=== PATIENT | female | born 1935 | race Caucasian/White ===

== ENCOUNTER 2021-09-23 19:54 | Inpatient (IN) | payer OTHER, MEDICARE ==
[~2021-09-23] VITALS: Ht 167.6 cm; Wt 60.8 kg
--- NOTE | ~2021-09-23 | D ---
[facility] [address] [place] [address] DISCHARGE SUMMARY Name: JOHNNIE GORDON Room #: 527B-B [facility] IN M.R.#: [id number] Admission: 09/24/21 Attend Phys: Sheldon Wood DO Discharge: 10/07/21 Date of : 39 Report #: [id number] THIS REPORT FOR: cc: FAM - Family physician unknown FAM - Family physician unknown Sheldon Wood DO ~ DATE OF SERVICE: 10/07/2021 INPATIENT PSYCHIATRIC DISCHARGE SUMMARY ATTENDING PSYCHIATRIST: Sheldon Wood DO WARRANTY ADMINISTRATOR: Natasha Motley MD DISCHARGE DIAGNOSES: Major neurocognitive disorder, likely due to Alzheimer's disease, at least mild degree without behavioral disturbance, major depressive disorder, unspecified. The patient is discharging initially to her daughter's ____ home, but will be placed at [facility] in assisted living with her in the end of this week. DISCHARGE DIET: For this patient is an 1800-calorie diabetic diet. ACTIVITY LEVEL: As tolerated. She does use a walker. The patient does require 24-hour assistance. DISCHARGE MEDICATIONS: Atorvastatin 10 mg oral daily for hyperlipidemia, melatonin 10 mg oral daily for hypertension and kidney protection, aspirin 81 mg oral daily for heart protection, metformin 1000 mg oral twice daily for diabetes mellitus, glimepiride 1 mg oral daily with breakfast. For hyperglycemia, omega 3 fatty acids 1000 mg oral daily. This was ____ medication. I did get a call for a prior authorization for which I declined as I do not normally give that and I was not the provider initiating on the medications. Additional medication, mirtazapine 15 mg oral at bedtime for sleep and appetite and depression. Vitamin B12 500 mcg oral daily for supplementation. Vitamin D3 5000 international units oral daily for supplementation. The patient was given Crisis suicide hotline information. LABORATORY DATA: Significant laboratories this admission. COVID-19 serology was negative on ____ , , and . Syphilis serology was nonreactive ____. A1c for hemoglobin was 7.5, suboptimal control. Triglycerides 149, cholesterol 106, LDL 75, HDL 52. B12 ____, vitamin D pretty low at 9.6, ____. TSH normal at 2.808. Urinalysis this admission showed trace blood. Had some other positives. Urine micro this admission showed no growth, however, on [address] done as part of our dementia workup on 09/24 showed no acute intracranial process. REASON FOR ADMISSION: An 86-year-old female admitted to [address] [address] DISCHARGE SUMMARY Name: JOHNNIE GORDON Room #: 527B-B [facility] IN ..#: [id number] Admission: 09/24/21 Attend Phys: Sheldon Wood, Discharge: 10/07/21 Date of : 37 Report #: [id number] after an intentional overdose, taking 40 of 15 mg mirtazapine. These were actually her 's. She states ____ she was trying to take her own life. We did get the patient from outside hospital ____ from On license of [facility]. HOSPITAL COURSE: The patient was admitted to Geriatric Psychiatry Unit. She had a depressed affect. I initially started on sertraline. She had some nausea and vomiting, switched her to mirtazapine for better gastrointestinal side effect profile. We did do ____ admission, the patient scored in the ____ I believe. Over the course of the admission, the patient's mood improved. We had several family meetings. The patient was living with her in ____. I felt that she would best be served in an assisted living. Also, the showing some signs of decline. The daughter, Bonnie, was very involved ____ process. There were some delays in getting placement arranged. At the day of discharge, the patient was not suicidal or homicidal. PHYSICAL EXAMINATION: VITAL SIGNS: Temperature 36.1, pulse 91, respirations 70, BP 130/56. BMI 21.6, weight 60.781 kilos. MUSCULOSKELETAL: Assisted gait with walker, slightly kyphotic. Normal station. MENTAL STATUS EXAMINATION: Well-developed, slightly ill-appearing female. Attention limited. Concentration limited. Speech normal in rate. Thought process: Linear and goal directed. Thought content, focused on discharge. Return to be with her . Denied SI, HI, auditory or visual type hallucinations. Memory not formally tested, known to be impaired. Insight and judgment fair. Fund of knowledge at least average. PROGNOSIS: For this patient is guarded given her age of 86, having a neurodegenerative disorder ____ placement. By: [id number] Sheldon Wood, DO /nt
[2021-09-24 01:00] VITALS: BP 163/86
--- NOTE | 2021-09-24 01:36 | NUR ---
PATIENT CAME BY WC FROM ED AFTER NEGATIVE RESULTS OF COVID PCR LAB TEST. SHE IS A/0X4. SHE STATES SHE LIVES IN A DETENTION COMMUNITY WITH HER WHO HAS SOME MEMORY ISSUES AND HER DAUGHTER HIRA ROCA [phone] OR CELL PHONE IS [phone] IS HER DPOA. SHE STATES SHE WAS FEELING OVERWHELMED AND THAT THINGS WERE CLOSING IN ON HER. HER DAUGHTER IS TAKING OVER ALL THE FINANCIAL BILLS AND OTHER FINANCES SINCE SHE WAS HAVING TROUBLE KEEPING UP WITH THEM. SHE DECIDED TO TAKE MIRTZAPINE 40 TABLETS. SHE STATES THIS MADE HER MORE UNSTEADY THAN USUAL ON HER FEET AND SHE HAD FALLEN AT SOME POINT. HER FOUND HER ON THE FLOOR BETWEEN HER BED AND BEDSIDE TABLE. PATIENT HAS MULTIPLE SCRAPES AND BRUISES OVER BILATERAL ARMS, A BRUISE ON RIGHT BREAST, BILATERAL SKINNED KNEES WITH ANGRY RED EDGES, AND LEFT SIDE OF BACK WITH 2 4" INCH ABRAISIONS/BRUISES FROM FALL. PATIENT CAN STAND WITH ASSISTANCE. HER BALANCE IS VERY UNSTEADY. SHE IS CALM AND COOPERATIVE AND HOPEFUL TO SEE IMPROVEMENT HERE. PATIENT HAS MED HISTORY OF DM2, HLD, OSTEOARTHRITIS (HIP,BACK). VSS FOLLOWS 163/86,P 91,R 18, T 97.1 AND 02 SAT ON RA 96%. BED IN LOW POSITON AND BED ALARM IS ON. HOSPITALIST NOTIFIED AND ORDERS RECEIVED FROM DR JOVEL. CONSENTS AWAITING DPOA OK. ROUTINE ROUNDS TO ASSESS SAFETY AND STATUS OF PATIENT.
[2021-09-24 07:51] VITALS: BP 159/81
[2021-09-24 08:03] LABS: CHOLESTEROL 156 mg/dL (<200); HDL CHOLESTEROL 52 mg/dL (>40); LDL CHOLESTEROL 75 mg/dL (<100); TRIGLYCERIDE 149 mg/dL (<150); VLDL 30 mg/dL (<40)
[2021-09-24 10:49] VITALS: BP 159/81
--- NOTE | 2021-09-24 14:55 | NUR ---
Nutrition: pt admitted with SI to [facility] unit. PMH: DM, HLD, osteoarthritis. No indication of weight loss or poor intake. Pt consumed 75% of her first meal on unit. On carb controlled diet. BG 169. On B12 supplement. BMI WNL. Follow for any needed interventions but place as low nutrition risk.
--- NOTE | 2021-09-24 17:40 | NUR ---
Taryn was alert and oriented x4 this shift, although forgetful. She expressed she felt overwelhmed due to not "knowing what I should be doing". Pt was provided education regarding the schedule on the unit and what to expect, to help to try and decrease pt's anxiety. She appreciated the education provided and stated "I might have to ask you again", reassurance given. Pt was calm, cooperative, pleasant, and appropriate. She presented as withdrawn and isolative to her room at times, but she did participate in afternoon groups. She was medicatoin and meal compliant, without difficulty. She expressed being hopeful to get better and expressed her daughter taking over as DPOA was a "relief" for her. She denied SI/HI/SUMMERS and remained safe while on the unit this shift. Pt stated she had a small BM this morning and felt slightly constipated; pt was provided education and she stated she would let this RN know if she needed a stool softner. Pt has not voiceed c/o constipation since. Pt is currently sitting comfortably in a chair in her room as she just finished eating dinner. Consent for treatment was received per pt's daughter, Monica this morning and was provided with the 4 digit security code, along with the direct line to the nurses station. Will continue to monitor.
[2021-09-24 19:50] VITALS: BP 141/56
[2021-09-24 20:12] VITALS: BP 141/56
--- NOTE | 2021-09-24 21:34 | H ---
[facility] [place] [address] HISTORY AND PHYSICAL Name: JOHNNIE GORDON Room #: 525A-A ADM IN M.R.#: [id number] Admission: 09/24/21 Attend Phys: Sheldon Wood DO Discharge: Date of : 37 Report #: [id number] THIS REPORT FOR: cc: FAM - Family physician unknown FAM - Family physician unknown Sheldon Wood DO ~ DATE OF SERVICE: 09/24/2021 INPATIENT GERIATRIC PSYCHIATRIC EVALUATION ATTENDING PSYCHIATRIST: Sheldon Wood DO SHANK STAPLER: Bebe Howell APRN; Domingo Patten MD; and his hospitalist team. SOURCES OF INFORMATION: Interview with the patient; brief collateral from daughter, Bonnie; records here at [facility] including the Emergency Room and hospitalist; records from [facility] where the patient initially presented for medical attention. CHIEF COMPLAINT: "I wanted it to be over." HISTORY OF PRESENT ILLNESS: This is an 86-year-old multiparous female residing with her in the [facility] area [place], [place]. The patient was transferred from Critical access hospital on [address] given concerns of intentional overdose suicide attempt. The patient did admit to taking her 's mirtazapine. She stated to me she wanted it to be over. The patient herself is 6 months younger than her . She states he has dementia she believes and is multiple myeloma survivor, and she functions as his caregiver. It does not sound like there is domestic strife and the abuse or violence ____, but it is sounding like she is unable to care for him further. When we dialed in the daughter, it sounds like they were going to be visiting Psychiatry, Psychology, other all kind of folks in the next month, but that had not been executed yet and they have not looked for placements for their mother and stepfather. She was admitted, it looks like on 09/20/2021 at [facility] and discharged there on the when she came over to us at [facility]. The patient has medical history, diabetes mellitus type 2, hyperlipidemia, hypertension, cataracts, osteoarthritis in the low back and hip. [facility] had a nice procedural kind of list. She has had a breast biopsy with negative pathology. She had a lipoma taken out of her shoulder, she has had a cholecystectomy. She had an extraction of cataract with implant in her right eye in 12/2015 and she had one in her left eye extracted in 01/2016. The patient reports she quit smoking in 1980. She denies alcohol. Denies illicit drug use. Our hospitalist FAT PRESSROOM WORKER was able to perform review of systems. REVIEW OF SYSTEMS: [facility] [address] [place] [address] HISTORY AND PHYSICAL Name: JOHNNIE GORDON Room #: 525A-A ADM IN M.R.#: [id number] Admission: 09/24/21 Attend Phys: Sheldon Wood, Discharge: Date of : 37 Report #: [id number] CONSTITUTIONAL: Denies. HEENT: Denies. RESPIRATORY: Denies. CARDIOVASCULAR: Denies. GASTROINTESTINAL: She has abdominal pain. She denied that to me this morning. GENITOURINARY: Denies. MUSCULOSKELETAL: Denies. SKIN: Denies. NEUROPSYCH: She actually pretty much denied it this morning. ENDOCRINE: Denied. HEMATOLOGIC AND LYMPHATIC: Denied. LABORATORY DATA: From her overdose presentation, did show glucose 285. Sodium was 137, potassium 4.0, chloride 99, bicarbonate 25, anion gap 13, calcium 9.2, total protein 6.4, albumin 4.4, alkaline phosphatase 70, ALT 22, AST 28, total bilirubin 0.5, BUN 18, creatinine 0.90. Troponin high sensitivity was 108, so slightly elevated. GFR female non- 59.7. CK was 64. Alcohol negative. Salicylate negative. The EKG done at [facility] showed a QT of 384 milliseconds, QTc 488 milliseconds, the PA interval [address] done there showed no acute intracranial abnormalities, mild cerebral atrophy and should double check here because I had asked her and her daughter, if she had a CT done and they said no, so we have repeated a CT here and when I reviewed the images, I agree it is a clean head CT, no strokes, mass or hydrocephalus I can tell, although the rate of her EKG was 97 in Critical access hospital. HOME MEDICATIONS: Known to be aspirin, coenzyme Q, enalapril, glimepiride, metformin, omega 3 fatty acids. ALLERGIES: IBUPROFEN. The primary care physician is Dr. Reyes from what the patient told me. Here at [facility] did a [facility] mental status examination and the patient scored a 15/30. Deficits were on working memory, verbal fluency, delayed memory, reverse digit span, executive functioning with clock drawing total of 15/30. PHYSICAL EXAMINATION: GENERAL: Uses a walker. Somewhat frail-appearing. BMI 21.5, weight 60.384 kilograms. MENTAL STATUS EXAMINATION: Well-developed, somewhat age, ill-appearing female. Attention impaired. Concentration impaired. Speech normal rate, volume, and tone. Thought Process: Linear and goal directed. Thought content: Focused on the present. Denied current suicidal ideation and homicidal [facility] [address] [place] [address] HISTORY AND PHYSICAL Name: JOHNNIE GORDON Room #: 525A-A ADM IN M.R.#: [id number] Admission: 09/24/21 Attend Phys: Sheldon Wood DO Discharge: Date of : 37 Report #: [id number] ideation. Denied auditory, visual, or tactile hallucinations. Memory impaired as described. Insight and judgment impaired. Mood and affect was okay, constricted, really incongruent. Fund of knowledge diminished. FORMULATION: An 86-year-old female admitted to [facility] voluntarily following an intentional suicide attempt. DIAGNOSES: Major neurocognitive disorder, likely Alzheimer's etiology without behavioral disturbance, unspecified depression, resolving multiple morbidities including diabetes mellitus, hypertension, osteoarthritis. PLAN: Admitted voluntarily to [facility]. Evaluate, stabilize. Hospitalist is consulted. In addition of the head CT, I have ordered the following: B12, vitamin D, syphilis antibody, lipids and A1c always ordered now. Also just occurred to me, as best I could tell, I did not see a TSH done at Critical access hospital, so we will go ahead and have that on for good measure. Discussed with the daughter. Family meeting in about 2 days. The patient will likely need a memory care placement. This may be a couple of placements with her . STRENGTHS: She is insured, has supportive family. WEAKNESSES: Evolving neurodegenerative disorder. Does not have a placement. Time spent on this case is good 60 minutes, greater than 50% of time was spent on reviewing records and coordination of care. <ELECTRONICALLY SIGNED> By: Sheldon Wood DO 09/24/21 [id number] Sheldon Wood DO /nt
--- NOTE | 2021-09-25 03:43 | NUR ---
Assumed care on 09/24/21 @ 1900, lying in bed with the lights out, awakens to voice, cooperative with assessment, HRRR, breath sounds CTA bilat, ABD N x 4Q, BM on 09/24. A&Ox4 Calm and pleasant affect noted. Compliant with medication administration, taking meds whole with water. Also requested Tylenol for back pain, which was provided. Denies SI currently, discussed her Suicide attempt and how she is improving her depression and feeling better. Ambulates with a walker with a steady gait. Will continue to monitor for safety and comfort as per unit protocol.
[2021-09-25 07:09] LABS: GLYCOHEMOGLOBIN (HGB A1C) 7.5 % (4.8-5.6)
[2021-09-25 09:53] VITALS: BP 152/68
--- NOTE | 2021-09-25 11:11 | NUR ---
PATIENT WAS IN BED AWAKE WHEN CARE ASSUMED, SHE IS A&O X 3-4 ABLE TO VOICE NEED. PATIENT AMBULATE WITH ASSIST OF ROLLER WALKER, GAIT UNSTEADY. PATIENT TOOK ALL MEDICATION WHOLE WITHOUT DIFFICULTY, SHE IS EATING MEALS, AND DRINKING FLUID WELL. PATIENT DENIES SUICIDAL/HOMICIDAL IDEATION, SHE RATES BOTH DEPRESSION/ANXIETY 8/10, DENIES HAVING PHYSICAL PAIN. AFFECT IS FLAT, MOOD IS DEPRESSED. NO SIGN OF ACUTE DISTRESS NOTED AT THIS TIME, WILL MONITOR FOR SAFETY.
[2021-09-25 19:30] VITALS: BP 128/40
[2021-09-25 19:34] VITALS: BP 128/40
--- NOTE | 2021-09-25 22:41 | NUR ---
PATIENT CARE WAS RESUMED AT 1900. SHE WAS SITTING IN HER ROOM ON A CHAIR AND SHE IS ALERT AND ORIENTED ABLE TO VERBALIZE HER NEEDS. SHE DENIES PAINS/SI/AVH/HI. SHE IS CONTINENT OF BOWEL AND BLADDER. LUNGS ARE CLEAR BS ACTIVE X4 QUAD.SHE TOOK HER MED WHOLE. BED IS LOW AND LOCKED. [id number] CHECK IS ON AND ACTIVE. CONTIUNE CARE.
[2021-09-26 09:09] VITALS: BP 153/56
[2021-09-26 11:27] VITALS: BP 153/56
--- NOTE | 2021-09-26 13:14 | NUR ---
RESUMMED CARE; PATIENT LOCATED IN ROOM RESTING IN CARLOS-CHAIR; PATIENT AMBULATES WITH A WALKER-GAIT IS STEADY BUT SHUFFLED; PATIENT COMPLAINTS OF PAIN THE RIGHT KNEE-UPON ASSESSMENT INFORMATION SERVICES CONSULTANT NOTES LARGE WOUND-HELAING, REDDNESS AROUND THE AREA, WARM TO TOUCH; NOTIFIED DURING ROUNDS-WOUND CARE ORDERED; PATIENT DENIES SI/HI/AVH-STATES "I JUST WANT TO TALK TO MY DTR AND GET OUT OF THIS PALCE." PATIENT REASSURED OF CAREPLAN AND HOW TO MOVE FORWARD WITH GETTING OUT OF HERE; A&0*4; MEAL/MED COMPLIANT; INDEPENDANT WITH CARES; PATIENT STAYS IN HER ROOM THROUGHOUT THE DAY AND HAS TO BE ENCOURAGED BY STAFF IN ORDER FOR HER TO COME OUT TO GROUPS; PAIN COMPLATES OF LRE PAIN 4/10-MEDICATIONS GIVEN PER NOV; PATIENT IS PLEASENT AND COOEPRATIVE; FALL PRECAUTIONS IN PLACE; WILL CONTINUE TO MONITIOR PER [facility] PROTOCOL;
--- NOTE | 2021-09-26 16:36 | NUR ---
Family meeting with patients DPOA (Bonnie Mclaughlin), son-in-law, Dr. Wood and SW. Medication reviewed. Family would like to look into placement in the [facility] ([facility]) as that is the patient's community.
--- NOTE | 2021-09-26 16:37 | NUR ---
Welcome email sent to [email or web address]
[2021-09-26 19:45] VITALS: BP 133/44
--- NOTE | 2021-09-26 23:56 | NUR ---
KRYSTLE CARE WAS RESUMED AT 1900. SHE WAS IN HER ROOM AND SHE DENIES ANY CONCERNS. LUNGS ARE CLEAR BS ACTIVE X4 QUAD. ABLE TO VERBALIZE HER NEEDS. SHE IS CONTINIET OF BOWEL AND BLADDER. ABD IS SOFT, FLAT AND NON TENDER. SHE TOOK HER MEDS WHOLE AND BED IS LOW, LOCKED. SHE DENIES PAINS/SI/AVH/HI. CONTINUE CARE
[2021-09-27 10:08] VITALS: BP 128/48
[2021-09-27 10:14] VITALS: BP 128/48
[2021-09-27 11:13] VITALS: BP 128/48
--- NOTE | 2021-09-27 13:10 | NUR ---
Taryn was alert and oriented x4 this shift yet did present as forgetful. For example, after discussing with pt the plan for her to receive a shower she asked "I did ask you to see if I could was my hair, right?". Pt presented as worried but calm, cooperative, pleasant, and withdrawn. Pt tends to isolate to her room but did attend groups throughout the day. Pt often worries about doing the right thing and making sure she's doing "what I'm supposed to". Pt was less withdrawn to her room this afternoon and is noted currently sitting in the dayroom watching TV. She was medication compliant this shift, taking pills whole without difficulty. Pt voiced wishes to shower this shift and talk to her daughter, both of which have been completed this shift. She expressed not being very hungry at lunch but due to starting sertraline 50 mg today pt was provided with crackers to help offset possible SE of nausea. 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 Wound care completed per orders. Pt did c/o of some right knee pain, tylenol given with effectiveness. Will continue to monitor.
--- NOTE | 2021-09-27 16:34 | NUR ---
Voice message received from Paddy RO - [phone]
--- NOTE | 2021-09-27 16:57 | NUR ---
New order received for dressing change to R knee. The pt was ordered silvadene with morphine sulfate to be applied during dressing change, therefore there is a BLUE form from pharmacy that MUST be filled out with each dressing change/administration. This RN spoke to pharmacy to get clarificaiton on how to fill the form out considering it is a cream. Per pharmacy, use an estimate of how much cream is used, about 2 grams per application. The form must be filled out until it is gone, or if pt is discharged and there is still cream left then it must be properly wasted and the form be returned to pharmacy either when pt is discharged or when completely gone. THE CREAM WILL BE STORED IN PT's INDIVIDUAL BIN IN THE [employer]. Will communicate this during shift change report.
[2021-09-27 19:02] VITALS: BP 137/41
[2021-09-27 19:30] VITALS: BP 137/41
[2021-09-27 21:06] LABS: SYPHILIS AB Non Reactive (Non Reactive)
--- NOTE | 2021-09-28 04:21 | NUR ---
[facility] CARE WAS RESUMED AT 1900. SHE WAS SITTING IN HER ROOM ON THE RECLINER WITH LEGS UP. DRESSING TO HER WOUNDS ARE INTACT. LUNGS ARE CLEAR BS ACTIVE X4 QUADS. SHE IS CONTINET OF BOWEL AND BLADDER. SHE TOOK HER MEDS WHOLE AND SHE DENIES PAINS/SI/AVH/HI. Q 12MINUTES CHECKS ARE ONGOING. SHE HAS A BLUE AT HE BED SIDE TABLE. CONTINUE TO MONITOR
[2021-09-28 10:18] VITALS: BP 152/54
[2021-09-28 11:12] VITALS: BP 152/54
--- NOTE | 2021-09-28 11:43 | NUR ---
RESUMMED CARE; PATIENT LOCATED IN HER ROOM IN CARLOS-CHAIR SLEEPING; NO S/O ACUTE DISTRESS NOTED; A&0*3-CONFUSED; PATIENT DENIES SI/HI/AVH; V/S PRESENT HYPERTENSIVE @ 152/54-MONITIORING; DENIES SOB-CP- STATES TO BE HAVING SOME NAUSEA AROUND LUNCH TIME, MEDICATION GIVEN PER MAR; PATIENT COMPLAINTS OF PAINFUL URINATION WITH DISCHARGE PRESENT- MD NOTIFIED AND URINALYSIS COLLECTED; SKIN ASSESSMENT NOTES MULTIPLE WOUNDS- WOUND TO RIGHT KNEE WITH ACTIVE WOUND CARE- BOTTOM AREA PRESENTS WITH REDDNESS, BARRIER CREAM APPLIED; PATIENT VERBALIZED BEING OVERWHELMED WITH HER INCREASED MEMORY ISSUES; PATIENT THEN STATED TO SAND MILL GRINDER AFTER BEING ASKED ABOUT PREVIOUS SI " I JUST FEEL EMBARRASSED FOR EVEN CONTIPLATING MY LIFE, JUST MAKES ME FEEL LIKE SUCH A COWARD." SAND MILL GRINDER WAS ABLE TO CONSOLE PATIENT; HIGH-FALL PRECAUTIONS ARE IN PLACE; WILL CONTINUE TO MONITIOR PER [facility] PROTOCOL;
[2021-09-28 11:45] LABS: URINE BILIRUBIN NEGATIVE (Negative); URINE BLOOD NEGATIVE (Negative); URINE CLARITY CLEAR; URINE COLOR YELLOW; URINE GLUCOSE-RANDOM* 2+ (Negative); URINE KETONES NEGATIVE (Negative); URINE LEUKOCYTES-REFLEX 3+ (Negative); URINE NITRITE-REFLEX NEGATIVE (Negative); URINE PROTEIN (DIPSTICK) NEGATIVE (Negative); URINE SPECIFIC GRAVITY 1.015 (1.005-1.035); URINE UROBILINOGEN 0.2 E.U./dl (0.2-1.0)
[2021-09-28 12:11] LABS: BACTERIA-REFLEX 1-9 Few /HPF (None Seen); CASTS None Seen /LPF (None Seen); CRYSTALS None Seen /LPF (None Seen); SQUAMOUS >10 Many /LPF (0-3); URINE RBC 1-2 Rare /HPF (NONE SEEN)
[2021-09-28 19:10] VITALS: BP 132/53
[2021-09-28 19:50] VITALS: BP 132/53
--- NOTE | 2021-09-28 21:51 | NUR ---
PATIENT CARE CONTINUED INTO NEXT SHIFT; NO S/O ACUTE DISTRESS NOTED; A&O*3- INTERMITTENT CONFUSION NOTED; URINALYSIS RESULTS RECIEVED- CULTURE PENDING; VSS ON ROOMAIR; DENIES SI/HI/AVH; PATIENT LOCATED IN BED RESTING COMFORTABLY; WOUND CARE COMPLETED TO ALL NOTED WOUNDS; RIGHT KNEE DRSG CHANGED AND D/C/I; DRSG NOTED TO HAVE DRAINAGE AND THE WOUND IS TENDER APON DRSG CHANGE; PATIENT DENIES WANTING MEDICATIONS FOR PAIN; HIGH-FALL PRECAUTIONS ARE IN PLACE; PATIENT CARE HANDED OFF TO RN;
[2021-09-29 09:21] VITALS: BP 155/62
--- NOTE | 2021-09-29 13:21 | NUR ---
PATIENT CARE ASSUMED AT 0700 - PLEASANT - ALERT AND ORIENTEC X 3-4. PATIENT STATED HAD GOOD NIGHT SLEEP. ADVISED THAT SHE HAS HAD SEVERAL BOUTS OF DIARRHEA SINCE LAST EVENING. DENIES ANY PAIN CURRENTLY OR DISCOMFORT. DENIES S/I AND ADMITS THAT REMORSEFUL ABOUT OVERDOSING ON REMERON. REALIZES WAS WRONG AND CAUSED ALOT OF GRIEF FOR . CLAIMS FIRST ATTEMPT. WORRIED ABOUT MEMORY ISSUES AND HEALTH TRIGGERING S/I ATTEMPT. PATIENT AMBULATORY AND SELF CARE. ATE 50 PERCENT OF BREAKFAST BUT STATED NOT HUNGRY FOR LUNCH. PATIENT HAS BEEN UP IN DINING [place]. PARTICIPATED IN BOTH MORNING AND AFTERNOON GROUP ACTIVITIES. WHEN ASSESSED HEART RATE STRONG AND STEADY AND LUNGS CLEAR ON AUSCULTATION. BOWEL SOUND ACTIVE IN ALL FOUR QUADRANTS. WILL CONTINUE TO MONITOR PATIENT FOR SAFETY AND ADDRESS ANY CONCERNS ACCORDINGLY THAT ARRISE.
[2021-09-29 19:42] VITALS: BP 133/41
[2021-09-29 19:45] VITALS: BP 131/52
--- NOTE | 2021-09-29 23:12 | NUR ---
PATIENT CARE WAS RESUMED AT 1900. SHE IS ALERT AND ORIENTED AND ABLE TO VERBALIZE HER NEEDS. SHE IS CONTINIET OF BOWEL AND BLADDER. DENIES PAINS/SI/AVH/HI AT THIS TIME. ABD IS SOFT AND NONE TENDER. SHE TOOK HER MEDS WHOLE, BED IS LOW, LOCKED AND [id number] CHECK IS ONGONIG. NONE SKID SOCK IS ON.CONT CARE
[2021-09-30 09:35] VITALS: BP 131/52
[2021-09-30 10:34] LABS: URINE BILIRUBIN NEGATIVE (Negative); URINE BLOOD TRACE (Negative); URINE CLARITY CLOUDY; URINE COLOR YELLOW; URINE GLUCOSE-RANDOM* 2+ (Negative); URINE KETONES NEGATIVE (Negative); URINE NITRITE-REFLEX NEGATIVE (Negative); URINE PROTEIN (DIPSTICK) NEGATIVE (Negative); URINE UROBILINOGEN 0.2 E.U./dl (0.2-1.0)
[2021-09-30 10:36] LABS: URINE LEUKOCYTES-REFLEX 3+ (Negative)
[2021-09-30 10:44] LABS: SQUAMOUS 4-10 Moderate /LPF (0-3); URINE WBC-REFLEX >25 Many /HPF (0-5)
[2021-09-30 10:45] LABS: AMORPHOUS URATES Few /LPF (None Seen); CASTS None Seen /LPF (None Seen); URINE RBC 3-10 Few /HPF (NONE SEEN)
--- NOTE | 2021-09-30 12:48 | NUR ---
PATIENT CARE RESUMMED; PATIENT LOCATED IN ROOM RESTING COMFORTABLY; NO S/O ACUTE DISTRESS NOTED; A&O*3- INCREASED CONFUSION AT TIMES; PRESENTS [id number]; DENIED SOB-CP-SI/HI/AVH; PATIENT STATES PAIN IN THE RIGHT LEG 10/17; WOUNDS CARE WAS COMPLETED PER ORDERS; VSS ON ROOMAIR; PATIENT COMPLAINT OF ABD DISCOMFORT-STATES FEELING OF NEEDING TO HAVE BOWEL MOVEMENT BUT IS UNABLE TO PASS ONE; PATIENT GIVEN MEDICATIONS FOR ASSISTANCE; HIGH-FALL RISK PRECAUTIONS ARE IN PLACE; WILL CONTINUE TO MONITIOR PER [facility] PROTOCOL;
[2021-09-30 14:42] VITALS: BP 131/52
--- NOTE | 2021-09-30 16:46 | NUR ---
Email received from Bonnie Mclaughlin regarding the appropriateness of Independent Living plus care for the patient.
[2021-09-30 19:56] VITALS: BP 119/35
--- NOTE | 2021-10-01 05:01 | NUR ---
10-01-21 CARE TRANSFERRED 0 OBSERVED PT SITTING IN DAY ROOM. LATER PT AAOX3, VSS, RR EVEN AND NONLABORED ON RA, LUNGS CLEAR, HT RR, ABD SOFT/ACTIVE/ NONTENDER. PT DENIES SI/HI AND PAIN. WOUND CARE COMPLETED CLEANED WITH NS, TOPICAL APPLIED AND COVERED XEROFORM AND WRAP WITH KERLIX. DURING MEDICATION ADMIN PT HAD NO DIFFICULTIES AND REPORTED PAIN. PRN ADMIN AND UPON REASSESSMENT PT WAS RESTING WITH EYES CLOSED. PT HAS BEEN PLEASANT, CALM AND COOPERATIVE DURING NURSING ASSESSMENT AND CARES. PT WILL CONTINUE TO BE MONITOR PER [facility] PROTOCOL.
[2021-10-01 09:09] VITALS: BP 144/50
--- NOTE | 2021-10-01 10:37 | NUR ---
Nutrition followup: pt with stable weight. Eating 50-100% of meals on carb controlled diet. Vitamin D supplementation for deficiency. Also on B12. Assisted pt with lunch order. Pt voices no other nutrition needs. Low risk.
--- NOTE | 2021-10-01 10:42 | NUR ---
RT Progress Note- Taryn has been present in most recreation therapy groups since her admission. She has moments of hesitation to attend group but with encouragement, she will participate. She speaks softly and is guarded. Continues to endorse low mood and has difficulty identifying appropriate coping skills in group discussion. CLASSROOM PARAPROFESSIONAL will continue to encourage her participation and development of coping skills.
[2021-10-01 12:07] VITALS: BP 144/50
--- NOTE | 2021-10-01 12:23 | NUR ---
RESUMMED CARE; PATIENT LOCATED IN HER ROOM IN BED RESTING COMFORTABLY-NO S/O ACUTE DISTRESS NOTED; PATIENT DENIES SI/HI/AVH-PRESENTS [id number]-DEPRESSED AFFECT; VSS ON ROOMAIR; WOUND CARE COMPLETED TO THE RIGHT KNEE-DRSG D/C/I; PATIENT VOICES CONCERNS ABOUT HER INCREASED MEMORY FUNCTIONS; URINALYSIS WAS COMPLETED AND ANTIBIOTICS WERE STARTED PER ; PATIENTS BOTTOM AREA IS RED-NO BREAKDOWN VISUALIZED- BARRIER CREAM IS APPLIED; AMBULATES WITH A WALKER-GAIT IS STEADY, PATIENT EASILY FATIGUED AT TIMES; HIGH FALL PRECAUTIONS ARE IN PLACE; WILL CONTINUE TO MONITIOR PER [facility] PROTOCOL;
[2021-10-01 19:19] VITALS: BP 123/42
[2021-10-01 20:30] VITALS: BP 126/54
--- NOTE | 2021-10-02 05:40 | NUR ---
10-01-21 CARE TRANSFERRED 0 OBSERVED PT SITTING IN DAY ROOM. LATER PT AAOX4, VSS, RR EVEN AND NONLABORED ON RA. PT PLESANT, CALM AND COOPERATIVE. PT DENIES SI/HI AND REPORTS KNEE PAIN. DURING MEDICATION ADMIN PT HAD NO DIFFICULTIES TAKING MEDICATION WHOLE WITH WATER. PT WOUND CLEAN WITH NS, SILVERDEEN APPLIED, XEROFORM COVERED AND WRAPPED WITH KERLIX. UPON REASSESSMENT PT RESTING WITH EYES CLOSED. LATER PT AWOKE CONFUSED AND REPORTED FORGETTING WHAT WAS GOING TO HAPPEN TODAY. PT WAS EASILY REORINENATED. PT WILL CONTINUE TO BE MONITOR PER [facility] PROTOCOL.
[2021-10-02 07:30] VITALS: BP 128/41
[2021-10-02 11:32] VITALS: BP 128/68
--- NOTE | 2021-10-02 12:51 | NUR ---
RESUMMED CARE FROM OVERNIGHT SHIFT THIS AM, PATIENT IN DAY ROOM SITTING QUIET. PATIENT DENIES SI/HI/AH/VH AT PRESENT, PATIENTS AFFECT FLAT SHE HAS SOME DEPRESSION. SHE RATES HER DEPRESSION AT ABOUT A 3 NO ANXIETY PATIENT WANTS TO GO HOME. PATIENT ATE BREAKFAST TOOK MEDICATION WITHOUT INCIDENCE. PATIENTS ABDOMEN SOFT BOWEL SOUNDS PRESENT. PATIENTS LUNGS CLEAR I CHANGED HER DRESSING ON HER RT LEG. WOUND HEALING NICELY NO DRAINAGE NO REDNESS. PATIENT PARTICIPATES IN GROUPS LIKES TO BE IN HER ROOM LYING QUET. PATIENT HAS NOT DISPLAYED ANY BEHAVIORS. WILL CONTINUE TO MONITOR PATIENT FOR SAFETY AND BEHAVIORS.
[2021-10-02 18:50] VITALS: BP 132/49
--- NOTE | 2021-10-03 02:25 | NUR ---
PATIENT CARE WAS RESUMED AT 1900. SHE IS ALAERT AND ORIENTED. MODERATE ASSIST WITH CARE. LUNGS ARE CLEAR BS ACTIVE X4 QUAD. SHE IS CONTINENT OF BOWEL AND BLADDER.ABD IS SOFT MODERATE SIZE AND NON TENDER.SHE TOOK HER MEDS WHOLE AND DENIES PAINS/SI/AVH/HI. BED IS LOW , LOCKED AND ALARMED.NON SKID SOCKS ON AND Q12 MINUTES CHECK IS ON GOING. CONTINUE CARE
[2021-10-03 10:28] VITALS: BP 146/54
--- NOTE | 2021-10-03 10:52 | NUR ---
PATIENT CARE RESUMMED; PATIENT LOCATED IN BED RESTING; NO ACUTE S/O DISTRESS NOTED; PRESENTS [id number]; HAS A FLAT AFFECT ALTOUGH VERY POSITIVE WHEN CONVERSATING; DENIES SI/HI/AVH; STATES "I JUST DONT UNDERSTAND WHAT IS GOING ON WITH MY BRAIN." "I FEEL LIKE AT TIMES I CANT REMEMBER WHAT I DID 5 MINUTES AGO." PATIENT DENIES PAIN-SOB-CP; AMBULATES WITH WALKER-GAIT VISUALIZED STEADY; BARRIER CREAM WAS APPLIED TO BUTTOCKS DUE TO REDDNESS; WOUND CARE WAS COMPLETED TO THE RIGHT KNEE WOUND PER ORDERS; HIGH FALL PRECAUTIONS ARE IN PLACE; WILL CONTINUE TO MONITIOR PER [facility] PROTOCOL;
--- NOTE | 2021-10-03 16:53 | NUR ---
Referral faxed to [facility].
[2021-10-03 19:52] VITALS: BP 135/49
--- NOTE | 2021-10-04 05:43 | NUR ---
Assumed care of pt at 1900. pt calm et cooperative this shift. Took medications whole without difficulty. Ambulates the halls ad jolie with assistance of walker with steady gait. VSWNL. Health assessment with no abnormalities noted at present time. Dressing change done as ordered. Denies SI/HI at present time. Watched TV in dayroom with peers at beginning of shift. Currently resting in bed with eyes closed. Will continue to monitor per unit protocol.
[2021-10-04 07:54] VITALS: BP 135/70
--- NOTE | 2021-10-04 08:27 | NUR ---
Email received from Bonnie stating she has visited 6 potential placements for the patient and the patient's spouse. She is taking the spouse to visit [facility] today. If the spouse likes, then this will be the selection.
[2021-10-04 13:05] VITALS: BP 135/70
--- NOTE | 2021-10-04 14:26 | NUR ---
RESUMMED CARE; PATIENT LOCATED IN THE DINNING CARROLL WATCHING TV; NO S/O ACUTE DISTRESS NOTED; A&O*4; INTERMITTENT CONFUSION; DENIES SI/HI/AVH; DENIES PAIN-SOB-CP; PATIENT PRESENTS [id number]; VSS ON ROOMAIR; PATIENT HAS SEVERAL WOUNDS, ONLY ONE WHICH IS REQUIRING DRSG CHANGES; DRSG IS D/C/I; BARRIER CREAM IS BEING APPLIED TO BUTTOM FOR REDDNESS; AMBULATORY WITH WALKER-GAIT VISUALIZED STEADY; HIGH-FALL PRECAUTIONS ARE IN PLACE; WILL CONTINUE TO MONITIOR PER [facility] PROTOCOL;
[2021-10-04 19:25] VITALS: BP 122/53
--- NOTE | 2021-10-05 04:43 | NUR ---
PATIENT CARE WAS RESUMED AT 1900. SHE IS ALERT AND ORIENTED. SHE AMBULATES WITH WALKER. MINI ASSIST WITH CARE. SHE DENIES PAIN/SI/AVH/HI. ABLE TO VERBALZE HER NEEDS. LUNGS ARE CLEAR BS ACTIVE [id number]. SHE TOOK HER MEDS WHOLE WITH WATER. BED IS LOW, LOCKED AND NON SKID SOCKS ON. SHE IS CONTINIET OF BOWEL AND BLADDER. SHE IS CALM , CO-OPERATIVE WITH CARE. DRESSING ARE OPEN TO AIR AT THIS TIME. Q12 MINUTES CHECKS ARE ONGING, CONTINUE CARE
[2021-10-05 09:46] VITALS: BP 121/52
[2021-10-05 14:48] VITALS: BP 121/52
--- NOTE | 2021-10-05 16:54 | NUR ---
RESUMMED CARE @0700; PATIENT LOCATED IN THE DAYROOM SITTING AT THE TABLE WATCHING TV ALONGSIDE HER PEERS; A&O*4; INTERMITTENT CONFUSION-INCREASED CONFUSION NOTED IN THE MORNING HOURS; PATIENT DENIES SI/HI/AVH; DENIES PAIN-SOB-CP; PATIENT PRESENTS [id number]; WOUND CARE PROVIDED TO THE RIGHT KNEE - SULEMAN - VSS ON RMA; PATIENT HAS NO COMPLAINTS AT THIS TIME; UP AD DAISHA WITH WALKER - GAIT VISUALIZED STEADY; HIGH-FALL PRECAUTIONS ARE IN PLACE; WILL CONTINUE TO MONITIOR PER [facility] PROTOCOL;
[2021-10-05 20:25] VITALS: BP 100/69
--- NOTE | 2021-10-06 05:34 | NUR ---
Assumed care of pt at 1900. Pt calm et cooperative this shift. Took medications whole without difficulty. Ambulates the halls ad jolie with assistance of walker with steady gait. VSWNL. Health assessment with no abnormalities noted this shift. Denies SI/Hi at present time. Wound to right knee currently being left to open air as reported to this nurse by previous shift. Currently resting in bed with eyes closed. Will continue to monitor per unit protocol.
[2021-10-06 10:18] VITALS: BP 132/64
--- NOTE | 2021-10-06 10:50 | NUR ---
RESUMMED CARE @0700; PATIENT LOCATED IN THE DINING CARROLL ALONG SIDE HER PEERS, SEATED IN A CHAIR WATCHING TV. NO S/O ACUTE DISTRESS; PATIENT PRESENTS CALM - COOPERATIVE - PLEASENT; DENIES PAIN-SOB-CP; DENIES SI/HI/AVH; AMBULATES WITH A WALKER - GAIT VISUALIZED STEADY; PATIENT HAS HEALING WOUNDS TO THE BILATERAL KNEES, ELBOWS, RIGHT ARM & BACK AREA. THE RIGHT KNEE HAS ORDERS FOR DRSG CHANGES; PATIENT STATED TO CIRCULATION DIRECTOR THAT WOUND CARE DOCTOR CAME AND SAW HER 10/04/21 AND SAID NO MORE DRSG, THE WOUND LOOKED GOOD AND WE COULD LEAVE IT OPA; WOUND CARE NOT COMPLETED TODAY PER PATIENT REQUEST; A&O*4 - FORGETFUL; VSS ON ROOMAIR; HIGH-FALL RISK PRECAUTIONS ARE IN PLACE; WILL CONTINUE TO MONITIOR PER [facility] PROTOCOL;
--- NOTE | 2021-10-06 18:13 | NUR ---
RT PROGRESS NOTE- PATIENT HAS BEEN FOLLOWING THROUGH WITH HER TREATMENT. SHE HAS BEEN ATTENDING ALL GROUPS AND PROVIDES GREAT PARTICIPATION.
[2021-10-06 19:50] VITALS: BP 121/38
[2021-10-06 20:03] VITALS: BP 121/38
--- NOTE | 2021-10-06 22:46 | NUR ---
Assumed care on 10/06/21 @ 1900, amabulates with a steady gait. Is a high fall risk d/t recent falls . VSS, calm and cooperative, denies Depression, stating I'm Feeling Better. Acknowledges anxiety, saying yea, I'm anxious thinking about all the things that I need to do to move into the assisted living. Denies AH/VH, Denies SI/HI. A&Ox3, only off on the date by 5 days, gives correct month and year. Reports Back pain of 7/10 Acetaminophen 650mg provided and on follow up is noted to be sleeping.
--- NOTE | 2021-10-07 09:20 | NUR ---
Phone call to Polly Grubbs regarding virtual assessment for patient prior to discharge - Message
[2021-10-07 09:42] VITALS: BP 158/56
[2021-10-07 09:58] VITALS: BP 158/56
--- NOTE | 2021-10-07 10:38 | NUR ---
RESUMMED CARE @0700; PATIENT LOCATED IN THE DINNING CARROLL ALONG SIDE HER PEERS; NO S/O ACUTE DISTRESS NOTED; A&O*4-FOGRTFUL; VSS ON ROOMAIR; PATIENT PRESENTS [id number]; PATIENT STATES SHES A LITTLE ANXIOUS ABOUT GOING HOME TODAY, ALTHOUGH EXCITED; PATIENT IS TO BE DISCHARGED TODAY @1500 TO HOME WITH HER FAMILY WHILE THEY GET HER FACILITY SET UP FOR HER AND HER ; DENIES SI/HI/AVH; DENIES SOB-PAIN-CP; PATIENT DID VERBALIZE SOME CONCERNS TO FORMS DESIGNER ABOUT A SPOT ON HER ABDOMEN THAT IS TENDER WHEN PALPATED AND IS HARD UNDERNEATH; FORMS DESIGNER ASSESSED PATIENT AND THE RLQ HAS A MEDIUM SIZED BRUISE THAT IS HARDENED TO THE TOUCH; PATIENT STATED "SOMEONE GAVE ME A SHOT THERE AND ITS BEEN THAT WAY SINCE." TO BE NOTIFIED PRIOR TO DISCHARGE; HIGH-FALL PRECAUTIONS ARE IN PLACE; AMBULATORY WITH WALKER; WILL CONTINUE TO MONITIOR PER [facility] PROTOCOL;
[2021-10-07] MEDS ORDERED: ASA81BEC PO (10:57)
[2021-10-07] MEDS ORDERED: VASOTEC10 MG PO (10:57)
[2021-10-07] MEDS ORDERED: LIPITOR10 MG PO (10:57)
[2021-10-07] MEDS ORDERED: METFORMIN HCL500 MG PO (10:58)
[2021-10-07] MEDS ORDERED: GLIMEPIRIDE1 MG PO (10:58)
[2021-10-07] MEDS ORDERED: REMERON 30 MG T30 M1 PO (11:09)
[2021-10-07] MEDS ORDERED: VITAMIN D3125 MC1 PO (11:09)
[2021-10-07] MEDS ORDERED: B-12500 MCG PO (11:09)
[2021-10-07] MEDS ORDERED: FISH OIL 1,0001 EAC5 PO (11:09)
[2021-10-07 12:07] VITALS: BP 158/56
[2021-10-07 12:34] VITALS: BP 158/56
--- NOTE | 2021-10-07 12:49 | NUR ---
1;1 WITH PATIENT TO COMPLETE [place] SUICIDE REASSESSMENT. WAS ADMITTED FOLLOWING INTENTIONAL OD. DENIES SI/SH DURING ASSESSMENT STATING "I DON'T EVER WANT TO GO DOWN THAT PATH AGAIN"WHEN ASKED WHAT HAD CHANGED OR WHAT SHE WOULD DO DIFFERENTLY STATES TO THIS NURSE "I WOULD CALL MY DAUGHTER" "I HAVE A VERY SUPPORTIVE FAMILY IS ABLE TO ID 2-3 HEALTHY ALTERNATIVE COPING TECHNIQUES AND POSSIBLE TRIGGERS TO SUICIDAL THOUGHTS.
--- NOTE | 2021-10-07 15:29 | NUR ---
Patient discharged from unit @1515; Patients belongings all accounted for and are with patient; Patient was assisted out of facility with OPERATOR ASSISTANT I CEMENTING in a wheelchair for patient safety; Patient was assisted into car by OPERATOR ASSISTANT I CEMENTING and family; Patient education was completed at discharge; Discharge packet was reviewed in person with patients daughter;
--- NOTE | 2021-10-08 11:23 | HC ---
[facility] [place] [address] CONSULTATION Name: JOHNNIE GORDON Room #: 527B-B [facility] IN M.R.#: [id number] Admission: 09/24/21 Attend Phys: Sheldon Wood DO Discharge: 10/07/21 Date of : 39 Report #: [id number] THIS REPORT FOR: cc: [facility] - Family physician unknown [facility] - Family physician unknown Eliu Putnam MD ~ DATE OF SERVICE: 09/27/2021 WOUND CARE CONSULTATION PERSONAL PHYSICIAN: None on staff. CHIEF COMPLAINT: Right knee traumatic wound. HISTORY OF PRESENT ILLNESS: This is an 86-year-old white female who was admitted to the Behavioral Psych Unit after she attempted suicide by taking 40 of 15 mg mirtazapine. The patient did state she was trying to take her own life. The patient was noted, then to have a wound on the right knee, which she states she sustained after a fall. When asked when the fall occurred, she says she cannot remember. The patient denies any other associated wounds at this time. The patient is somewhat slightly confused. The patient however was not agitated. PAST MEDICAL HISTORY: Significant for anxiety, hypertension, hyperlipidemia, type 2 diabetes and the recent suicidal attempt. CURRENT MEDICATIONS: Multiple, reviewed the patient's medication list. DRUG ALLERGIES: IBUPROFEN. SOCIAL HISTORY: The patient has a remote history of smoking. Denies alcohol use. Lives at home with . FAMILY HISTORY AND REVIEW OF SYSTEMS: Unobtainable because of the patient's confused state. PHYSICAL EXAMINATION: VITAL SIGNS: Temperature 36.1, pulse 88, respirations 17, BP 120/48. GENERAL: This is an alert and oriented to person, place, but not time, white female who is in no acute distress. HEENT: Normocephalic, atraumatic. Mucous membranes are dry. Pupils are round. Sclerae white. NECK: Without JVD. LUNGS: Clear. HEART: Regular. ABDOMEN: Soft, nontender. [facility] [address] [place] [address] CONSULTATION Name: JOHNNIE GORDON Room #: 527B-B [facility] IN M.R.#: [id number] Admission: 09/24/21 Attend Phys: Sheldon Wood, Discharge: 10/07/21 Date of : 39 Report #: [id number] EXTREMITIES: The patient moves all extremities without difficulty. Evaluation of right knee reveals a traumatic wound with eschar. Periwound is intact without erythema, warmth, or signs of cellulitis. It is tender to palpation. There is no fluctuance. There are no other signs of any other trauma noted to the rest of the leg. The patient has essentially full range of motion of the right knee. Distal pulses are intact. NEUROLOGIC: Cranial nerves 2-12 grossly intact. Motor and sensory are grossly intact. LABORATORY DATA: Hemoglobin A1c is 7.5. IMPRESSION: 1. Traumatic wound to the right knee, status post fall. 2. History of suicidal attempt. 3. Diabetes mellitus. 4. Generalized debility. PLAN: We will start morphine, Silvadene cream to the traumatic wound on the right knee twice daily, cover this with Xeroform, ABD, Kerlix, and Alfredo. The patient is to continue all other current medications. Wound does not appear to be infected, so I do not think oral antibiotics need to be administered. The patient will continue under psychiatric therapy. Appreciate the ability to consult. We will continue to follow the patient. <ELECTRONICALLY SIGNED> By: Eliu Putnam MD 10/08/21 [id number] Eliu Putnam MD /nt
== END 2021-10-07 15:20 | disposition home or self-care (01) | DRG 57 ==
LOC: SBH 19:54
PROVIDERS: Hospitalist; ADMIT Psychiatry & Neurology Psychiatry; ATTEND Psychiatry & Neurology Psychiatry
DX: G30.9 Alzheimer's disease, unspecified (principal); F02.81 Dementia in other diseases classified elsewhere, unspecified severity, with behavioral disturbance; R45.851 Suicidal ideations; N39.0 Urinary tract infection, site not specified; F01.51 Vascular dementia, unspecified severity, with behavioral disturbance; F32.9 Major depressive disorder, single episode, unspecified; E11.9 Type 2 diabetes mellitus without complications; Z88.8 Allergy status to other drugs, medicaments and biological substances; Z20.822 Contact with and (suspected) exposure to COVID-19; I10 Essential (primary) hypertension; E78.5 Hyperlipidemia, unspecified; F41.9 Anxiety disorder, unspecified; M19.90 Unspecified osteoarthritis, unspecified site
CPT/HCPCS: 10880